=== PATIENT | male | born 1950 | race African-American/Black ===

== ENCOUNTER 2016-09-30 05:15 | Day surgery (SDC) | payer MEDICAID, MEDICARE ==
--- NOTE | 2016-09-29 20:16 | Pre-op HX & Phy Repo 2 SIG ---
DATE OF ADMISSION: 09/30/2016 DATE OF SURGERY: 09/30/2016. PREOPERATIVE DIAGNOSIS: Retained lens fragments, left eye. BRIEF NOTE: This is the first [place] admission for the patient, who is a 66-year-old gentleman with a long history of diabetes and diabetic retinopathy. The right eye was lost some years ago to severe changes of diabetes and glaucoma. He had a tube shunt surgery done on that side in 2015, but subsequently all vision was lost. The right eye developed severe and progressive diabetic retinopathy. He was initially seen in early 2015 at my office and had a vitrectomy in both eyes. He had a vitreous surgery done elsewhere approximately one year later and subsequent to that, developed a cataract. During the procedure this morning, there was rupture of the capsule with loss of the lens material. He is admitted for a fragmentation and removal of lens material plus a secondary lens implant on the left eye. PAST MEDICAL HISTORY: Remarkable for diabetes onset in 2012 and possibly sooner. He also has hypertension. CURRENT MEDICATIONS: Include hydrochlorothiazide, glipizide, metformin, and simvastatin. He is on topical drops for glaucoma. PHYSICAL EXAMINATION: Best vision at the time of the visit was no light perception in the right eye and light projection in the left. The pressure on the left was 2. Anterior segment on the right showed band keratopathy, a stromal scar, and a tube shunt in place. On the left, there was trace injection. A corneal suture was seen at the 2 o'clock position with a small abrasion. The chamber was deep. Lens material was seen centered in the pupil with a capsulotomy having been performed and cortical debrided. There was minimal inflammation. Funduscopic exam could not be seen. Funduscopic examination of the right eye was not possible. The left could not be seen secondary to the white cataract with lens material. An ultrasound done on the left eye showed the retina to be all attached without significant vitreous hemorrhage. ASSESSMENT: 1. Subluxated lens with retained lens material, left eye. 2. Severe proliferative retinopathy, left eye. PLAN: The plan is to perform a pars plana vitrectomy with fragmentation and removal of the lens. Dr. Jackson will perform a secondary lens implant. The risks and benefits of surgery have been gone over with the patient with potential for infection, hemorrhage, retinal detachment, glaucoma, and remote possibility of loss of the eye. The risk of anesthesia was discussed. The patient understands and consents to the surgery, which will be performed on tomorrow morning. Lalo Gold M.D. DR: CHHAYA JOB#: [id number] CC:
[2016-09-30] VITALS (11 sets, daily range): BP systolic 144–172; BP diastolic 73–108
[~2016-09-30] VITALS: Ht 185.4 cm; Wt 93.0 kg
[2016-09-30] MEDS ORDERED: Gatifloxacin Opth Solution 0.5% ONE (05:25)
[2016-09-30] MEDS ORDERED: Cyclopentolate 1% Opth Sol ONE (05:26)
[2016-09-30] MEDS ORDERED: Phenylephrine 2.5% Op Soln ONE (05:26)
[2016-09-30] MEDS ORDERED: Flurbiprofen 0.03% Opth Sol 2.5ml ONE (05:26)
[2016-09-30] MEDS: Cyclopentolate 1% Opth Sol LEFT EYE SCH ×3 (06:05→06:32)
[2016-09-30] MEDS: Phenylephrine 2.5% Op Soln LEFT EYE SCH ×3 (06:05→06:32)
[2016-09-30] MEDS: Gatifloxacin Opth Solution 0.5% LEFT EYE SCH ×3 (06:06→06:33)
[2016-09-30] MEDS: Flurbiprofen 0.03% Opth Sol 2.5ml LEFT EYE SCH ×3 (06:06→06:32)
[2016-09-30] MEDS ORDERED: ACETAZOLAMIDE250 MG ORAL (06:14)
[2016-09-30] MEDS ORDERED: BENAZEPRIL HCL20 MG ORAL (06:14)
[2016-09-30] MEDS ORDERED: METFORMIN HCL500 M1 ORAL (06:14)
[2016-09-30] MEDS ORDERED: TYLENOL EXTRA500 MG ORAL (06:14)
[2016-09-30] MEDS ORDERED: COSOPT1 DRO2 (06:17)
[2016-09-30] MEDS ORDERED: BRIMONIDINE TART5 ML BOTH EYES (06:17)
[2016-09-30] MEDS ORDERED: XALATAN2.5 ML LEFT EYE (06:17)
[2016-09-30] MEDS ORDERED: AMOXICILLI250 MG/5 M ORAL (06:22)
[2016-09-30] MEDS ORDERED: BSS 500ml btl ONE (06:40)
[2016-09-30] MEDS ORDERED: Lidocaine 1% MPF 10mg/ml 5ml ONE ×2 (06:41→07:08)
[2016-09-30] MEDS ORDERED: Kenalog-40 1ml Vial ONE (06:41)
[2016-09-30] MEDS ORDERED: Maxitrol Opth Oint 3.5gm ONE (06:42)
[2016-09-30] MEDS ORDERED: Dexamethasone 4mg/ml vial ONE (06:42)
[2016-09-30] MEDS ORDERED: Tetracaine 0.5% Opth Soln ONE (06:42)
[2016-09-30] MEDS ORDERED: EPINEPHrine 1mg/1ml Amp ONE (06:43)
[2016-09-30] MEDS ORDERED: Kenalog-10 5ml Inj ONE (06:43)
[2016-09-30] MEDS ORDERED: Sodium Hyaluronate 10 mg/ml 0.85ml ONE ×2 (06:44→08:32)
[2016-09-30] MEDS ORDERED: Bupivacaine 0.75% 30ml vial INJ ONE (06:45)
[2016-09-30] MEDS ORDERED: Povidone-Iodine 5% opth solution ONE (06:45)
[2016-09-30] MEDS ORDERED: Sterile Water Irrig 1000ml IRRIG ONE (07:00)
[2016-09-30] MEDS ORDERED: fentaNYL 100 mcg/2 mL IV ONE (07:00)
[2016-09-30] MEDS ORDERED: Midazolam 2mg/2ml Inj ONE (07:00)
[2016-09-30] MEDS ORDERED: Pred Forte 1% Opth Susp 1ml LEFT EYE SCH (07:00)
[2016-09-30] MEDS ORDERED: NS Irrig 1000ml ONE (07:00)
[2016-09-30] MEDS ORDERED: LR 1000ml ONE (07:00)
--- NOTE | 2016-09-30 07:11 | Pre-Procedure Note/Attestation ---
Pre-Procedure Note/Attestation Complete Prior to Procedure Planned Procedure: left Procedure Narrative: 1) PPV. Fragmentation of retained lens material, possible endolaser L eye. 2) Insertion of secondary IOL L eye (Dr Jackson) Indications for Procedure Pre-Operative Diagnosis: Retained lens material post cataract surgery L eye. Severe proliferative diabetic retinopathy L eye Attestation I attest that I discussed the nature of the procedure; its benefits; risks and complications; and alternatives (and the risks and benefits of such alternatives ), prior to the procedure, with the patient (or the patient's legal claims customer service representative). I attest that, if there was a reasonable possibility of needing a blood transfusion, the patient (or the patient's legal claims customer service representative) was given the [place] Department of [facility] Services standardized written summary, pursuant to the Cody Rigoberto Blood Safety Act ([place] Health and Safety Code # 1645, as amended). I attest that I re-evaluated the patient just prior to the surgery and that there has been no change in the patient's H&P, except as documented below: ROBERTO HADLEY Sep 30, 2016 07:11
[2016-09-30] MEDS ORDERED: Norco 5mg/325mg tab ORAL PRN (07:15)
--- NOTE | 2016-09-30 07:42 | Pre-Procedure Note/Attestation ---
Pre-Procedure Note/Attestation Complete Prior to Procedure Planned Procedure: left Indications for Procedure Pre-Operative Diagnosis: patient has a partially subluxed mature cataract left eye Attestation I attest that I discussed the nature of the procedure; its benefits; risks and complications; and alternatives (and the risks and benefits of such alternatives ), prior to the procedure, with the patient (or the patient's legal consumer sales representative). I attest that, if there was a reasonable possibility of needing a blood transfusion, the patient (or the patient's legal consumer sales representative) was given the [facility] standardized written summary, pursuant to the Cody Rigoberto Blood Safety Act ([place] Health and Safety Code # 1645, as amended). I attest that I re-evaluated the patient just prior to the surgery and that there has been no change in the patient's H&P, except as documented below: AMY GARCIA M.D. Sep 30, 2016 07:42
[2016-09-30] MEDS ORDERED: Carbachol 0.01% Op Soln 1.5ml vial ONE (07:46)
[2016-09-30] MEDS ORDERED: LR 1000ml 1,000 ML IVLG SCH (07:48)
--- NOTE | 2016-09-30 07:48 | Anethesia Preoperative Eval ---
Anesthesia Pre-op PMH/ROS General Date of Evaluation: Sep 30, 2016 Time of Evaluation: 06:58 Anesthesiologist: Cristiana ASA Score: ASA 3 Mallampati Score Class I : Soft palate, uvula, fauces, pillars visible Class II: Soft palate, uvula, fauces visible Class III: Soft palate, base of uvula visible Class IV: Only hard plate visible Mallampati Classification: Class II Surgeon: Asif Diagnosis: L eye retinopathy Surgical Procedure: L eye PPV Anesthesia History: none Family History: no anesthesia problems Allergies: Coded Allergies: No Known Allergies (Unverified , 09/29/16) Medications: see eMAR Past Medical History Cardiovascular: Reports: HTN, Denies: CAD, [place], arrhythmia, other, valve dz Pulmonary: Denies: COPD, JESS, asthma, other Gastrointestinal/Genitourinary: Reports: GERD, Denies: CRI, ESRD, other Neurologic/Psychiatric: Reports: depression/anxiety, Denies: CVA, TIA, dementia, other Endocrine: Reports: DM - stable on pills, Denies: hypothyroidism, other, steroids HEENT: Reports: cataract (L), glaucoma - R eye blind, other - l eye retinopathy, Denies: CHICK[place]OON (L), CH[place]ON (R), cataract (R) Hematology/Immune: Denies: DVT, anemia, bleeding disorder, other Musculoskeletal/Integumentary: 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 Exam Physician Exam Last Vital Signs Date Time Temp Pulse Resp B/P Pulse Ox O2 Delivery O2 Flow Rate FiO2 09/30/16 06:26 97.7 56 20 172/86 99 Room Air Constitutional: NAD Cardiovascular: RRR, no M/R/G Respiratory: CTA Gastrointestinal: S/NT/ND Airway Exam Mallampati Score: Class II MO: limited Neck: stiff ROM: limited Teeth: missing, broken Dentures: no lower, no upper Anesthesia Pre-op A/P Labs see chart Accucheck 125 at admission Studies Pre-op Studies: EKG - NSR Risk Assessment & Plan Assessment: ASA 3 Plan: GA surgeon request Status Change Before Surgery: No Pre-Antibiotics Drug: none SUMMER BENITEZ M.D. Sep 30, 2016 07:48
[2016-09-30] MEDS ORDERED: Hydromorphone 0.5mg/0.5ml inj IVP PRN (08:00)
[2016-09-30] MEDS ORDERED: DiphenhydrAMINE 50mg/ml Inj IVP PRN (08:00)
[2016-09-30] MEDS ORDERED: Midazolam 2mg/2ml Inj IVP PRN (08:00)
--- NOTE | 2016-09-30 08:52 | Brief Operative Note ---
Immediate Post Operative Note Operative Note Pre-op Diagnosis: patient has a partially subluxed mature cataract left eye Procedure: removal of lens corticle material placement of a posterior chamber iol left eye Post-op Diagnosis: same Post-op Diagnosis: same as pre-op plus Surgeon: Oscar GARCIA Lens Polisher: Shantanu HADLEY Anesthesia: general Specimen: none Complications: none Condition: stable Estimated Blood Loss: none Drains: none Implant(s) used?: Yes AMY GARCIA M.D. Sep 30, 2016 08:52
--- NOTE | 2016-09-30 09:11 | Brief Operative Note ---
Immediate Post Operative Note Operative Note Chief Complaint: Dark vision with large floater Pre-op Diagnosis: Retained lens material post cataract surgery L eye. Severe proliferative diabetic retinopathy L eye Procedure: PPV, fragmentation of dislocated lens. endolaser L eye 773 spots Post-op Diagnosis: same as pre-op Surgeon: imtiaz Screw Driver Operator: emma Anesthesiologist: Cristiana Anesthesia: general Specimen: none Complications: none Condition: stable Estimated Blood Loss: none Drains: none Implant(s) used?: Yes - Dr Jackson....inserted 20.5 diopter sulcus fixated lens ROBERTO HADLEY Sep 30, 2016 09:10
--- NOTE | 2016-09-30 11:09 | Immediate Post-Op Evaluation ---
Immediate Post-Op Evalulation Immediate Post-Op Evalulation Procedure: L eye PPV lens fragments removal laser treatment Date of Evaluation: Sep 30, 2016 Time of Evaluation: 09:04 IV Fluids: 700 Blood Products: none Estimated Blood Loss: min Urinary Output: none Blood Pressure Systolic: 158 Blood Pressure Diastolic: 76 Pulse Rate: 64 Respiratory Rate: 22 O2 Sat by Pulse Oximetry: 99 Temperature (Fahrenheit): 97.4 Pain Score (1-10): 2 Nausea: No Vomiting: No Complications none Patient Status: reacts, patent, none Hydration Status: adequate SUMMER BENITEZ M.D. Sep 30, 2016 11:09
--- NOTE | 2016-09-30 11:10 | 48 Hour Post Anesthesia Eval ---
Post Anesthesia Evaluation Procedure: L eye PPV lens fragments removal laser treatment Date of Evaluation: Sep 30, 2016 Time of Evaluation: 11:09 Blood Pressure Systolic: 142 0: 73 Pulse Rate: 64 Respiratory Rate: 18 Temperature (Fahrenheit): 97.6 O2 Sat by Pulse Oximetry: 98 Airway: patent Nausea: No Vomiting: No Pain Intensity: 2 Hydration Status: adequate Cardiopulmonary Status: stable Mental Status/LOC: patient returned to baseline Follow-up Care/Observations: n/a Post-Anesthesia Complications: none Follow-up care needed: ready to discharge SUMMER BENITEZ M.D. Sep 30, 2016 11:10
--- NOTE | 2016-09-30 13:00 | Operative Note - Dictated ---
DATE: 09/30/2016 PREOPERATIVE DIAGNOSIS: Subluxed lens, right eye. POSTOPERATIVE DIAGNOSIS: Subluxed lens, right eye. PROCEDURE: This surgery was done in conjunction with Dr. Lalo Gold, who actually dealt with removal of nuclear material from the vitreous cavity due to subluxed lens, as he removed this lenticular material, there was a small cortical fragment also located in anterior chamber. Once he was able to strip all residual cortical material from the anterior lens capsule and removed the cortical material and nuclear material from the vitreous cavity. The procedure was turned over to me and we did initially was open up the wound color corneal incision with the keratin blade and open up the paracentesis site as well. With the infusion came here still in place, we used a vitrectomy instrument on suction only and removed the cortical fragment. Once this was removed, Healon was injected into the anterior chamber to blow the anterior capsular leaflet posteriorly and we were able to 20.5 diopter posterior chamber lens. The residual Healon was removed with the aid of the infusing canula releasing the from the anterior chamber as well as vitreous. Once this was completed, the wound was closed down with single with interrupted nylon suture. Knots were buried. At the conclusion of the case, no blood loss and no complications to the surgery. Shaq Jackson M.D. DR: Richard JOB#: [id number] CC:
--- NOTE | 2016-09-30 16:00 | Operative Note - Dictated ---
DATE OF OPERATION: 09/30/2016 PREOPERATIVE DIAGNOSIS: Retained lens fragments, left eye, post cataract surgery. POSTOPERATIVE DIAGNOSIS: Retained lens fragments, left eye, post cataract surgery. PROCEDURES: 1. Pars plana vitrectomy. 2. Fragmentation of retained lens material. 3. Endolaser, left eye. SURGEON: Lalo Gold M.D. CLAY DRY PRESS OPERATOR: Dr. Donald Jackson. ANESTHESIA: LMA general. ANESTHESIOLOGIST: Anderson Zendejas M.D. JUSTIFICATION FOR SURGERY: This 66-year-old gentleman with longstanding diabetes, underwent cataract surgery on yesterday, which was complicated by rupture of the posterior capsule and loss of the nucleus posteriorly. He is admitted for repair. Please refer to a second dictation by Dr. Jackson detailing the insertion of a secondary lens implant. BRIEF NOTE: The patient brought to the operative room, placed on operating room table in supine position. After a time out was performed and agreed upon by the staff, general LMA anesthesia was induced by Dr. Zendejas. A limited retrobulbar block and Van Lint block were given to limit intraoperative anesthesia and postoperative pain. The patient was then prepped and draped in normal manner. A lid speculum inserted into the left eye. Using a 23-gauge trocar system cannulas were placed in all except the inferonasal quadrant and the supranasal quadrant cutdown through conjunctiva and tenons was made in anticipation of the margin sclerotomy later. Using the vitreous cutter, residual cortical material was gently suctioned from posterior to the remaining capsule. This went without difficulty. Using wide-angle viewing system, the vitrectomy was continued, removing peripheral vitreous leaving a small vitreous skirt. A large portion of the lens with a central nucleus and the surrounding cortical material was noted. The vitreous cutter was used to remove as much cortical material as possible. The cutter was removed and the wound enlarged to 20-gauge size supranasally. The fragmatome was then inserted and through a series of maneuvers, the lens was suctioned from the posterior pole and fragmented in the mid vitreous cavity. This was done until all fragments of lens were removed. A posterior viewing lens was inserted and the macular examined the eye had been previously vitrectomized and there were islands of old fibrotic tissue, but the macula was flat. All lens material had been removed. It was noted that certain areas of the retina were only lightly treated with laser and so the wide-angle viewing system was then repositioned and using the endolaser probe, a power of 0.2 chinchilla and duration 0.2 seconds a total of 773 lesions were applied to areas of lightly treated retina that appeared to be ischemic. No problems were encountered. Scleral depression was performed with no residual lens material or peripheral breaks, tears or detachments were noted. The instruments were removed from the eye and the superonasal sclerotomy was closed with 8-0 Vicryl suture. Overlying conjunctiva was secured with a similar suture. The procedure was then turned over to Dr. Jackson who inserted the posterior chamber lens in the sulcus. At conclusion, the infusion line was removed and this wound was noted to be self-sealing. Subconjunctival Decadron and gentamicin were then injected and prednisolone, gatifloxacin and Maxitrol ointment were instilled. The eye was patched and shielded. The patient taken to recovery in excellent condition. There were no complications. He is to see Dr. Donald Jackson tomorrow afternoon. Lalo Gold M.D. DR: EMA JOB#: [id number] CC: Dr. Donald Jackson
== END 2016-09-30 11:20 | disposition home or self-care (01) ==
LOC: SUR 05:15
DX: H27.112 Subluxation of lens, left eye (principal); H59.022 Cataract (lens) fragments in eye following cataract surgery, left eye; Y84.8 Other medical procedures as the cause of abnormal reaction of the patient, or of later complication, without mention of misadventure at the time of the procedure; Y92.89 Other specified places as the place of occurrence of the external cause; E11.3592 Type 2 diabetes mellitus with proliferative diabetic retinopathy without macular edema, left eye; Z79.84 Long term (current) use of oral hypoglycemic drugs; H54.41 Blindness, right eye, normal vision left eye; H40.9 Unspecified glaucoma; I10 Essential (primary) hypertension; K21.9 Gastro-esophageal reflux disease without esophagitis; F32.9 Major depressive disorder, single episode, unspecified; F41.9 Anxiety disorder, unspecified; M19.90 Unspecified osteoarthritis, unspecified site
CPT/HCPCS: 66852; 66985; 82962; J0171; J1100; J2250; J3010; J3470; J3490; J7120; V2632; 94003; 94150

== ENCOUNTER 2018-03-14 06:08 | Day surgery (SDC) | payer MEDICARE, MEDICAID ==
[2018-03-14] VITALS (10 sets, daily range): BP systolic 113–132; BP diastolic 67–81
[~2018-03-14] VITALS: Ht 185.4 cm; Wt 95.3 kg
[~2018-03-14 06:08] MED LIST: ACETAZOLAMIDE250 MG ORAL; AMOXICILLI250 MG/5 M ORAL; Avastin 10mg Inj IVITRE ONE; BENAZEPRIL HCL20 MG ORAL; BRIMONIDINE TART5 ML BOTH EYES; COSOPT1 DRO2; METFORMIN HCL500 M1 ORAL; Pred Forte 1% Opth Susp 1ml LEFT EYE SCH; TYLENOL EXTRA500 MG ORAL; XALATAN2.5 ML LEFT EYE
[2018-03-14] MEDS ORDERED: Midazolam 2mg/2ml Inj ONE (07:13)
--- NOTE | 2018-03-14 07:24 | Pre-Procedure Note/Attestation ---
Pre-Procedure Note/Attestation Complete Prior to Procedure Planned Procedure: left Procedure Narrative: PPV, washout, endolaser, Avastin injection Left eye Indications for Procedure Pre-Operative Diagnosis: Loss of vision, bleeding Left eye Attestation I attest that I discussed the nature of the procedure; its benefits; risks and complications; and alternatives (and the risks and benefits of such alternatives ), prior to the procedure, with the patient (or the patient's legal customer service representative teller). I attest that, if there was a reasonable possibility of needing a blood transfusion, the patient (or the patient's legal customer service representative teller) was given the [facility] standardized written summary, pursuant to the Cody Deridder Blood Safety Act ([place] Health and Safety Code # 1645, as amended). I attest that I re-evaluated the patient just prior to the surgery and that there has been no change in the patient's H&P, except as documented below: Lalo Gold MD Mar 14, 2018 07:24
[2018-03-14] MEDS ORDERED: METFORMIN HCL500 M1 ORAL (07:26)
[2018-03-14] MEDS ORDERED: BENAZEPRIL HCL10 MG ORAL (07:26)
[2018-03-14] MEDS ORDERED: WATER PILL ORAL (07:26)
[2018-03-14] MEDS ORDERED: SIMBRINZA 1%-0.28 ML LEFT EYE (07:26)
[2018-03-14] MEDS ORDERED: PREDNISOLONE LEFT EYE (07:27)
[2018-03-14] MEDS: Cyclopentolate 1% Opth Sol 2ml LEFT EYE SCH ×3 (07:28→07:56)
[2018-03-14] MEDS: Flurbiprofen 0.03% Opth Sol 2.5ml LEFT EYE SCH ×3 (07:28→07:56)
[2018-03-14] MEDS: Phenylephrine 2.5% Op 2ml Soln LEFT EYE SCH ×3 (07:28→07:56)
[2018-03-14] MEDS: Vigamox Opth Soln 3ml LEFT EYE SCH ×3 (07:29→07:56)
[2018-03-14] MEDS ORDERED: Norco 5mg/325mg tab ORAL PRN ×2 (07:30→09:30)
[2018-03-14 07:58] LABS: BASOPHILS % (AUTO) 1.2 % (0.0-2.0); EOSINOPHILS % (AUTO) 1.4 % (0.0-3.0); HEMATOCRIT 42.8 % (42.0-52.0); HEMOGLOBIN 14.6 G/DL (14.2-18.0); LYMPHOCYTES % (AUTO) 33.5 % (20.0-45.0); MEAN CORPUSCULAR VOLUME 89 FL (80-99); MONOCYTES % (AUTO) 10.2 % (1.0-10.0); NEUTROPHILS % (AUTO) 53.8 % (45.0-75.0); PLATELET COUNT 232 K/UL (150-450); RED BLOOD COUNT 4.84 M/UL (4.70-6.10); RED CELL DISTRIBUTION WIDTH 10.8 % (11.6-14.8); WHITE BLOOD COUNT 4.6 K/UL (4.8-10.8)
[2018-03-14 08:07] LABS: ANION GAP 6 mmol/L (5-15); BLOOD UREA NITROGEN 15 mg/dL (7-18); CALCIUM 9.1 MG/DL (8.5-10.1); CARBON DIOXIDE 30 MMOL/L (21-32); CHLORIDE 105 MMOL/L (98-107); CREATININE 1.3 MG/DL (0.55-1.30); SODIUM 141 MMOL/L (136-145)
--- NOTE | 2018-03-14 08:30 | Pre-op HX & Phy Repo 2 SIG ---
DATE OF ADMISSION: 03/11/2018 DATE OF SURGERY: 03/14/2018. PREOPERATIVE DIAGNOSIS: Dense vitreous hemorrhage, left eye. PROCEDURES TO BE PERFORMED: 1. Pars plana vitrectomy. 2. Endolaser. 3. Washout. 4. Avastin injection, left eye. SURGEON: Lalo Gold M.D. BRIEF NOTE: This is a second [place] admission for the patient, who is a very nice 67-year-old gentleman with unfortunate very severe diabetic retinopathy. He lost the vision in the right eye some time ago to severe diabetic retinopathy with a traction retinal detachment and end-stage glaucoma. The left eye has done reasonably well with severe diabetic retinopathy. He had a combined procedure done by myself and Dr. Jackson in 2017, which involved vitrectomy and placement of a tube shunt for pressure issues. He has done reasonably well since that time, but his eye is very ischemic and has required periodic injections. He was unable to receive his last injection subsequent to this during a bout of sneezing and coughing developed a massive hemorrhage, which has effectively left him nonfunctional due to the monocular status. He is admitted for vitrectomy. PAST MEDICAL HISTORY: Remarkable for diabetes and hypertension. MEDICATIONS: He is on benazepril, hydrochlorothiazide, glipizide, metformin, simvastatin, and acetazolamide to control pressure. He is also taking topical Simbrinza and prednisolone. ALLERGIES: He has no allergies. PHYSICAL EXAMINATION: Best vision time of admission was no light perception in the right eye and hand motions at one foot in the left with the pressures in the left of 7. The anterior segment on the right showed a tube shunt as well as severe iris bombe and the endo fibrous pupillary membrane. On the left, there was a 20% hyphema and extensive gross cells in the anterior chamber. The valve was seen at the 10 o'clock as well as a posterior chamber lens. The fundus could not be seen, but an ultrasound showed attached with a moderately dense vitreous hemorrhage. ASSESSMENT: Dense vitreous hemorrhage, left eye. PLAN: The plan as noted above to perform a vitrectomy with washout, Endolaser, and Avastin injection tomorrow on Wednesday. The risks and benefits surgery gone over the patient with potential for infection, hemorrhage, glaucoma, worsening, retinal detachment, and the possibility of loss of the eye. The risk of anesthesia was discussed. The patient understands and consents to the surgery, which will be performed on Wednesday. Lalo Gold M.D. DR: CHHAYA JOB#: [id number] CC:
[2018-03-14] MEDS ORDERED: Lidocaine 1% MPF 10mg/ml 5ml ONE (09:00)
[2018-03-14] MEDS ORDERED: NS Irrig 1000ml ONE (09:00)
[2018-03-14] MEDS ORDERED: Sterile Water Irrig 1000ml IRRIG ONE (09:00)
[2018-03-14] MEDS ORDERED: LR 1000ml ONE (09:00)
[2018-03-14] MEDS ORDERED: Propofol 200mg/20ml IV ONE (09:00)
[2018-03-14] MEDS ORDERED: LR 1000ml 1,000 ML IVLG SCH (09:28)
--- NOTE | 2018-03-14 09:28 | Anethesia Preoperative Eval ---
Anesthesia Pre-op PMH/ROS General Date of Evaluation: Mar 14, 2018 Time of Evaluation: 08:54 Anesthesiologist: Danish ASA Score: ASA 3 Mallampati Score Class I : Soft palate, uvula, fauces, pillars visible Class II: Soft palate, uvula, fauces visible Class III: Soft palate, base of uvula visible Class IV: Only hard plate visible Mallampati Classification: Class II Surgeon: Asif Diagnosis: Vitreous Hemorrage Surgical Procedure: L Vitrectomy Anesthesia History: none Family History: no anesthesia problems Allergies: Coded Allergies: No Known Allergies (Unverified , 03/11/18) Medications: see eMAR Patient NPO?: Yes Past Medical History Cardiovascular: Reports: HTN Endocrine: Reports: DM HEENT: Reports: cataract (L), cataract (R) PSxH Narrative: Ahmed Valve, Multiple Eye Sx Anesthesia Pre-op Phys. Exam Physician Exam Last Vital Signs Date Time Temp Pulse Resp B/P (MAP) Pulse Ox O2 Delivery O2 Flow Rate FiO2 03/14/18 07:51 Room Air 03/14/18 07:37 97.2 64 20 125/79 97 Constitutional: NAD Neurologic: CN 2-12 intact Cardiovascular: RRR Respiratory: CTA Gastrointestinal: S/NT/ND Airway Exam Mallampati Score: Class II MO: full ROM: full Teeth: missing, intact, broken Anesthesia Pre-op A/P Labs Hematology Test 03/14/18 07:40 White Blood Count 4.6 K/UL (4.8-10.8) L Red Blood Count 4.84 M/UL (4.70-6.10) Hemoglobin 14.6 G/DL (14.2-18.0) Hematocrit 42.8 % (42.0-52.0) Mean Corpuscular Volume 89 FL (80-99) Mean Corpuscular Hemoglobin 30.2 PG (27.0-31.0) Mean Corpuscular Hemoglobin Concent 34.1 G/DL (32.0-36.0) Red Cell Distribution Width 10.8 % (11.6-14.8) L Platelet Count 232 K/UL (150-450) Mean Platelet Volume 8.3 FL (6.5-10.1) Neutrophils (%) (Auto) 53.8 % (45.0-75.0) Lymphocytes (%) (Auto) 33.5 % (20.0-45.0) Monocytes (%) (Auto) 10.2 % (1.0-10.0) H Eosinophils (%) (Auto) 1.4 % (0.0-3.0) Basophils (%) (Auto) 1.2 % (0.0-2.0) Chemistry Test 03/14/18 07:40 Sodium Level 141 MMOL/L (136-145) Potassium Level 4.0 MMOL/L (3.5-5.1) Chloride Level 105 MMOL/L (98-107) Carbon Dioxide Level 30 MMOL/L (21-32) Anion Gap 6 mmol/L (5-15) Blood Urea Nitrogen 15 mg/dL (7-18) Creatinine 1.3 MG/DL (0.55-1.30) Estimat Glomerular Filtration Rate > 60 mL/min (>60) Glucose Level 132 MG/DL (74-106) H Calcium Level 9.1 MG/DL (8.5-10.1) Risk Assessment & Plan Assessment: ASA 3 Plan: GA Status Change Before Surgery: Antonio Garcias MD Mar 14, 2018 09:28
--- NOTE | 2018-03-14 09:29 | Immediate Post-Op Evaluation ---
Immediate Post-Op Evalulation Immediate Post-Op Evalulation Procedure: L Vitrectomy Date of Evaluation: Mar 14, 2018 Time of Evaluation: 10:29 IV Fluids: 600 LR Blood Products: 0 Estimated Blood Loss: 1 Urinary Output: 0 Blood Pressure Systolic: 132 Blood Pressure Diastolic: 80 Pulse Rate: 65 Respiratory Rate: 16 O2 Sat by Pulse Oximetry: 100 Temperature (Fahrenheit): 97.7 Pain Score (1-10): 2 Nausea: No Vomiting: No Complications 0 Patient Status: awake, reacts, patent, none Hydration Status: adequate Antonio Peng MD Mar 14, 2018 09:29
[2018-03-14] MEDS ORDERED: Hydromorphone 0.5mg/0.5ml inj IVP PRN (09:30)
[2018-03-14] MEDS ORDERED: Midazolam 2mg/2ml Inj IVP PRN (09:30)
[2018-03-14] MEDS ORDERED: LORazepam Inj 2mg/ml 1ml IV PRN (09:30)
[2018-03-14] MEDS ORDERED: DiphenhydrAMINE 50mg/ml Inj IVP PRN (09:30)
[2018-03-14] MEDS ORDERED: fentaNYL 100 mcg/2 mL IV PRN (09:30)
[2018-03-14] MEDS ORDERED: oxyCODONE HCL/Acetaminophen 5/325mg ORAL PRN (09:30)
[2018-03-14] MEDS ORDERED: HYDROcodone/Acetamin 7.5/325 tab ORAL PRN (09:30)
[2018-03-14] MEDS ORDERED: Atropine Sulfate 0.4mg/ml inj IVP PRN (09:30)
[2018-03-14] MEDS ORDERED: Metoclopramide 10mg/2ml Inj IVP PRN (09:30)
[2018-03-14] MEDS ORDERED: Meperidine 50mg/ml Inj(FOR RIGORS ONLY) IVP PRN (09:30)
--- NOTE | 2018-03-14 09:30 | 48 Hour Post Anesthesia Eval ---
Post Anesthesia Evaluation Procedure: L Vitrectomy Date of Evaluation: Mar 14, 2018 Time of Evaluation: 12:41 Blood Pressure Systolic: 167 0: 87 Pulse Rate: 57 Respiratory Rate: 18 Temperature (Fahrenheit): 98.2 O2 Sat by Pulse Oximetry: 99 Airway: patent Nausea: No Vomiting: No Pain Intensity: 2 Hydration Status: adequate Cardiopulmonary Status: Stable Mental Status/LOC: patient returned to baseline Follow-up Care/Observations: 0 Post-Anesthesia Complications: 0 Follow-up care needed: ready to discharge Antonio Peng MD Mar 14, 2018 09:30
--- NOTE | 2018-03-14 10:15 | Brief Operative Note ---
Immediate Post Operative Note Operative Note Chief Complaint: Loss of vision, bleeding Left eye Pre-op Diagnosis: Vitreous hemorrhage and hyphema Left eye Procedure: PPV, washout, iris retractor placement and removal, evacuation of hyphema, endolaser (1491 spots), Avastin injection Left eye Post-op Diagnosis: same as pre-op Surgeon: imtiaz Anesthesiologist: Danish Anesthesia: general Specimen: none Complications: none Condition: stable Fluids: Per Anesthesia Estimated Blood Loss: none Drains: none Implant(s) used?: No Lalo Gold MD Mar 14, 2018 10:15
--- NOTE | 2018-03-14 10:15 | Pre-op HX & Phy Repo 2 SIG ---
DATE OF ADMISSION: 03/14/2018 PRESURGICAL INTERNAL MEDICINE HISTORY AND PHYSICAL DATE OF SURGERY: March 14, 2018. REASON FOR EVALUATION: I was asked by Dr. Lalo Gold to see this 67-year-old male who is going for elective surgery on the left eye. The patient has vitreous hemorrhage of left eye. The patient was evaluated. Chart was reviewed at [facility]. PAST MEDICAL HISTORY/REVIEW OF SYSTEMS: Remarkable for type 2 diabetes, hypertension, history of glaucoma. No history of stroke. No seizures. Denies history of chest pain, palpitation, or heart attack. No history of GI bleeding. No hepatitis. Denies history of renal failure. No anemia. No prostate problem. No thyroid problem. SURGICAL HISTORY: Eye surgery. FAMILY HISTORY: Mother from heart attack and she also had diabetes. Father, unknown. ALLERGIES: Not known. PRESENT MEDICATIONS: Include benazepril, Centrum Silver, multivitamin, metformin 3 times a day, and eyedrops. SOCIAL HISTORY: Tobacco use 35 years ago, approximately half pack a day. No alcohol. No street drugs. PHYSICAL EXAMINATION: GENERAL: The patient is alert, well-developed, well-nourished male in his 60s. VITAL SIGNS: Blood pressure 125/79, temperature 97.8, pulse 64 and regular, respirations 20, O2 saturation 97%. The patient's weight 210 pounds and 6 feet 1 inch tall, BMI is 27.7 kg/m2. SKIN: Warm, dry, clear. No open wound. No rashes. LYMPH NODES: Not enlarged. HEENT: Head normocephalic. Ears, clear, no discharge. Eyes, full description per Dr. Lalo Gold. Mouth, clear and moist, no dentures. Missed right molar. NECK: Supple. No jugular venous distention. Carotids artery +2. Trachea midline. CHEST: No deformity or asymmetry. LUNGS: Clear to auscultation and percussion. No rales or rhonchi. HEART: Regular. No ectopy. No murmur. No S3 or S4. ABDOMEN: Soft. No palpable mass. No rebound. EXTREMITIES: No edema. No varicose vein. No calf tenderness. GENITOURINARY TRACT: CVA nontender. No dysuria. NEUROLOGIC: No tremor. No nystagmus. LABORATORY AND DIAGNOSTIC DATA: ECG, normal sinus rhythm, 63 per minute, nonspecific T-wave abnormality. The patient did not eat or drink from last night. Fasting blood sugar 122 mg/dL. Laboratory, chemistry, sodium 141, potassium 4.0, chloride 105, CO2 30, BUN 15, creatinine 1.3, estimated GFR more than 60, blood glucose 132, and calcium 9.1. CBC is pending. IMPRESSION: 1. Vitreous hemorrhage, left eye. 2. Diabetes mellitus type 2. 3. Hypertension, controlled. 4. Glaucoma. PLAN: 1. Pars plana vitrectomy, washout, injection to left eye per Dr. Lalo Gold. CONCLUSION: The patient is a 67-year-old male with history of diabetes mellitus type 2, hypertension controlled. The patient's vital signs stable. He did not eat or drink from last night. The patient's condition optimized for surgery. Thank you very much, Dr. Gold, for privilege to participate in presurgical care of this interesting patient. Citlali Atwood M.D. DR: Nilesh JOB#: [id number] CC:
[2018-03-14] MEDS ORDERED: Lidocaine 2% MPF 5ml Vial INJ ONE (11:08)
[2018-03-14] MEDS ORDERED: EPINEPHrine 1mg/1ml Amp ONE (11:08)
[2018-03-14] MEDS ORDERED: Maxitrol Opth Oint 3.5gm ONE (11:08)
[2018-03-14] MEDS ORDERED: Bupivacaine 0.75% 30ml vial INJ ONE (11:09)
[2018-03-14] MEDS ORDERED: Dexamethasone 4mg/ml vial ONE (11:09)
[2018-03-14] MEDS ORDERED: BSS 15ml BTL ONE (11:09)
[2018-03-14] MEDS ORDERED: Povidone-Iodine 5% opth solution ONE (11:09)
[2018-03-14] MEDS ORDERED: Sodium Hyaluronate 10 mg/ml 0.85ml ONE (11:09)
[2018-03-14] MEDS ORDERED: Pred Forte 1% Opth Susp 1ml ONE (11:09)
[2018-03-14] MEDS ORDERED: Tetracaine 0.5% Opth 4ml Soln ONE (11:09)
[2018-03-14] MEDS ORDERED: BSS 500ml btl ONE (11:09)
--- NOTE | 2018-03-15 08:45 | Operative Note - Dictated ---
DATE OF OPERATION: 03/14/2018 PREOPERATIVE DIAGNOSIS: Vitreous hemorrhage and hyphema, left eye. POSTOPERATIVE DIAGNOSIS: Vitreous hemorrhage and hyphema, left eye. PROCEDURES: 1. Pars plana vitrectomy with washout. 2. Iris retractor placement and removal. 3. Evacuation of anterior chamber hyphema. 4. Endolaser. 5. Avastin injection, left eye. SURGEON: Lalo Gold M.D. OFFICE MACHINE INSPECTOR: None. ANESTHESIA: LMA general. ANESTHESIOLOGIST: Antonio Peng M.D. JUSTIFICATION FOR SURGERY: This is a 67-year-old male with significant diabetic retinopathy developed loss of his limited vision related . BRIEF NOTE: The patient brought to the operating room, placed on the OR table in supine position. After a time-out was performed and agreed upon by the staff, general LMA anesthesia was induced by Dr. Peng. Retrobulbar and Van Lint blocks were given in the standard way to limit postoperative pain and intraoperative anesthetic. He was then prepped and draped in the normal manner. A lid speculum was inserted into the left eye. Using the 23-gauge trocar system, a cannula was placed in the inferotemporal quadrant for infusion. The infusion was left on while MVR blade was used to perform paracenteses in the four primary quadrants. Iris retractors were placed in all except the inferotemporal quadrant. This paracentesis was used to flush and evacuate the hyphema from the anterior chamber. This went without difficulty and the final iris retractor was placed to enlarge the pupil. Two additional cannulas were placed superiorly and the vitrectomy was begun posterior to the lens implant. Evacuation of the washout of the vitreous rather was carried out going further posteriorly where large pool of blood was seen to overlie the macula. This was removed. There was no change in the configuration of the with old traction along the arcades, but the central macular was noted to be flat. There was significant cupping. The endolaser was brought into the eye and a power of 0.45 chinchilla, duration is a total of 1491 lesions were applied, going out to the far periphery with the aid of depression and filling in lightly treated areas going further posteriorly. No problems were encountered. At the conclusion of the laser, the iris retractors were removed. The chamber revealed no additional accumulation of blood. The two superior cannulas were removed and the sclerotomy was closed with 8-0 Vicryl suture. The infusion line was disconnected and Avastin 1.25 mg was injected. The eye was reinflated and this cannula was removed and sclerotomy similarly closed. Subconjunctival Decadron and gentamicin were then injected inferiorly and topical prednisolone acetate drops, moxifloxacin drops, atropine drops, and Maxitrol ointment were instilled. The eye was patched and shielded. The patient taken to recovery in excellent condition. There were no complications. Lalo Gold M.D. DR: LYNDA JOB#: [id number] CC:
--- NOTE | 2018-03-15 08:47 | Cardiology Report ---
APPROVED REPORT EKG Measurement Heart [id number] Normal sinus rhythm Nonspecific T wave abnormality Abnormal ECG
== END 2018-03-14 12:50 | disposition home or self-care (01) ==
LOC: SUR 06:08 → MERGE 06:08 → SUR 12:50
DX: H43.12 Vitreous hemorrhage, left eye (principal); H21.02 Hyphema, left eye; E11.319 Type 2 diabetes mellitus with unspecified diabetic retinopathy without macular edema; I10 Essential (primary) hypertension; H40.9 Unspecified glaucoma; Z79.84 Long term (current) use of oral hypoglycemic drugs; Z87.891 Personal history of nicotine dependence
CPT/HCPCS: 36415; 67039; 80048; 82962; 85025; 93005; J0171; J1100; J2250; J2704; J3490; 94003; 94150; J9035